=== PATIENT | female | born 1995 | race Caucasian/White ===

== ENCOUNTER 2019-10-18 22:28 | Emergency (ER) | payer OTHER ==
[~2019-10-18] VITALS: Ht 162.6 cm; Wt 61.7 kg
[2019-10-18] MEDS ORDERED: EPINEPHRINE 1 MG/ML, 1ML ONE (22:44)
[2019-10-18] MEDS ORDERED: DIPHENHYDRAMINE 50 MG/ML, 1ML ONE (22:47)
[2019-10-18] MEDS ORDERED: methylPREDNISolone SOD SUCC 125 MG/2 ML ONE (22:47)
[2019-10-18] MEDS ORDERED: FAMOTIDINE 20 MG/2 ML ONE (22:47)
[2019-10-18] MEDS ORDERED: INSULIN (22:49)
--- NOTE | 2019-10-18 22:52 | NUR ---
TASK RN PLACED PIV. IVF RUNNING. EPI 0.3 GIVEN. MEDS GIVEN PER MAR. PT REQUESTING TO HOLD OFF ON SOLUMEDROL, D/T PT DM1. PT STATES SHE IS FEELING BETTER. LIPS AND THROAT SWELLING HAVE DECREASED SIGNIFICANTLY. TECH AT BEDSIDE FOR EKG.
--- NOTE | 2019-10-18 22:56 | NUR ---
REPORT RECEIVED AND CARE ASSUMED. PT STATES FEELING BETTER AFTER EPI. VSS. PT REMAINS ON CARDIAC, BP, PULSE MONITORING. PT DECLINES SOLUMEDROL S/T AFFECTING HER FSBS--SHE IS A DIABETIC AND DOES NOT WANT ANY STEROIDS UNLESS ABSOLUTELY NEEDED. ERP TO BE NOTIFIED OF PT STATUS. CALL LIGHT IN REACH.
[2019-10-18] MEDS ORDERED: EPINEPHRINE 1 MG/ML, 1ML SQ ONE (23:00)
[2019-10-18] MEDS ORDERED: methylPREDNISolone SOD SUCC 125 MG/2 ML IVPush ONE (23:00)
[2019-10-18] MEDS ORDERED: SODIUM CHLORIDE 0.9% 1,000ML IVBOLUS ONE (23:00)
[2019-10-18] MEDS ORDERED: DIPHENHYDRAMINE 50 MG/ML, 1ML IVPush ONE (23:00)
[2019-10-18] MEDS ORDERED: FAMOTIDINE 20 MG/2 ML IVPush ONE (23:00)
--- NOTE | 2019-10-18 23:24 | NUR ---
Pt states continued relief. Lip swelling, SOB, and throat tightness all resolved. Pt up to BR with steady gait. Call light in reach.
--- NOTE | 2019-10-19 00:20 | NUR ---
Pt states no return of symptoms. Feels better. Mildly tachycardic on monitor. ERP aware that pt would like to go home. ERP at bedside to recheck, aware of HR--likely from Epi. Awaiting further dispo.
[2019-10-19 00:42] VITALS: BP 119/75
== END 2019-10-19 00:45 | disposition home or self-care (01) ==
LOC: ED 10-19
DX: T78.08XA Anaphylactic reaction due to eggs, initial encounter (principal); R06.2 Wheezing; R94.31 Abnormal electrocardiogram [ECG] [EKG]; E11.9 Type 2 diabetes mellitus without complications; Y92.89 Other specified places as the place of occurrence of the external cause
CPT/HCPCS: 93005; 96372; 96374; 96375; 99291; J0171; J1200; J3490; J7030; J2930